=== PATIENT | male | born 1955 | race American Indian/Alaskan Native ===

== ENCOUNTER 2021-12-11 11:38 | Outpatient (CLI) | payer MEDICARE ==
--- NOTE | 2021-12-12 18:33 | Electrocardiograph Report ---
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
== END 2021-12-11 11:39 | disposition home or self-care (01) ==
LOC: CARD 11:38
PROVIDERS: ATTEND Family Medicine
DX: Z13.6 Encounter for screening for cardiovascular disorders (principal)
CPT/HCPCS: 93005